=== PATIENT | female | born 1955 | race Caucasian/White ===

== ENCOUNTER 2019-11-22 14:13 | Outpatient (CLI) | payer BC, SELFPAY ==
--- NOTE | ~2019-11-22 | MM_ITS ---
EXAMINATION: MM screening [facility] w [place] HISTORY: Screening mammogram TECHNIQUE: Craniocaudal and mediolateral oblique 3-D tomosynthesis images were obtained and synthetic 2-D images were generated. CAD analysis was submitted and interpreted. COMPARISON: No prior mammogram is available for comparison at this institution. BREAST PARENCHYMAL COMPOSITION: There are scattered areas of fibroglandular density. FINDINGS: There is no evidence of suspicious mass, calcification, or architectural distortion to sugg est malignancy in either breast. There has been no suspicious interval change. IMPRESSION: 1. No mammographic evidence of malignancy. 2. Recommend routine screening mammography in one year. BI-RADS Category 1: Negative Reviewed, dictated and finalized at location A.
== END 2019-11-22 14:14 | disposition home or self-care (01) ==
PROVIDERS: PCP Family Medicine; Visit Provider Family Medicine
DX: Z12.31 Encounter for screening mammogram for malignant neoplasm of breast (principal)
CPT/HCPCS: 77063; 77067

== ENCOUNTER 2019-12-08 11:35 | Outpatient (CLI) | payer BC, SELFPAY ==
--- NOTE | ~2019-12-08 | US_ITS ---
US thyroid INDICATION: Direct nodules TECHNIQUE: Real-time sonographic images of the thyroid gland were obtained. COMPARISON: No prior studies for comparison. FINDINGS: The right thyroid lobe measures 4.7 x 1.7 x 2.2 cm. The left thyroid lobe measures 4.5 x 1 .6 x 1.9 cm. There are multiple bilateral thyroid nodules. There is a 1.8 cm cyst in the right lobe w hich is benign. There is a solid hypoechoic mass which is wider than tall, ill-defined margins and ma crocalcifications measuring 1.7 x 1.3 x 1.2 cm, TR 4 classification. In the left lobe there are multi ple small cystic and hypoechoic nodules, largest being a cyst measuring 7 mm. No suspicious masses wh ich may criteria for follow-up surveillance or biopsy. IMPRESSION: 1. 1.7 cm solid mass of the right thyroid lobe which meets sonographic criteria for biopsy. Ultrasou nd-guided fine-needle aspiration recommended. Reviewed, dictated and finalized at location A. IMPRESSION: 1. 1.7 cm solid mass of the right thyroid lobe which meets sonographic criteri a for biopsy. Ultrasound-guided fine-needle aspiration recommended.
== END 2019-12-08 11:36 | disposition home or self-care (01) ==
PROVIDERS: PCP Family Medicine; Visit Provider Internal Medicine Endocrinology, Diabetes & Metabolism
DX: E04.1 Nontoxic single thyroid nodule (principal)
CPT/HCPCS: 76536

== ENCOUNTER 2020-12-02 13:50 | Outpatient (CLI) | payer BC, SELFPAY ==
--- NOTE | ~2020-12-02 | US_ITS ---
EXAMINATION: US thyroid DATE: 12/02/2020 14:29 INDICATION: Nontoxic single thyroid nodule. TECHNIQUE: Multiple ultrasound images of the thyroid were obtained. COMPARISON: Ultrasound 12/08/2019 FINDINGS: The right thyroid lobe measures 5.2 x 2.2 x 1.7 cm. The left thyroid lobe measures 5.6 x 1.7 x 1.4 c m. In the right thyroid lobe, there is an 11 mm mixed solid and cystic, hypoechoic, hnbxu-[id number]-[id number] nodule with smooth margin without echogenic foci (TI-RADS TR3). In the right thyroid lobe, there is a 19 mm mixed solid and cystic, hypoechoic, cegob-mnhj-uvgy nodule with smooth margin without echogeni c foci (TR3). The left thyroid lobe, there is a 9 mm solid, hypoechoic, pjkdj-lxub-bwto nodule with i ll-defined margin without echogenic foci (TR4). IMPRESSION: 1. Stable thyroid nodules. Thyroid ultrasound is recommended in 2 years. Reviewed, dictated and finalized at location B.
== END 2020-12-02 13:51 | disposition home or self-care (01) ==
PROVIDERS: PCP Family Medicine; Visit Provider Internal Medicine Endocrinology, Diabetes & Metabolism
DX: E04.2 Nontoxic multinodular goiter (principal)
CPT/HCPCS: 76536

== ENCOUNTER 2020-12-07 13:57 | Emergency (ER) | payer BC, SELFPAY ==
[2020-12-07 14:05] VITALS: BP 137/82; PULSE 102; RESP 16; TEMP 36.3; O2SAT 100
--- NOTE | 2020-12-07 14:11 | ED.FEMALEGU ---
HPI - Female Genitourinary General Chief complaint: Urogenital-Female Stated complaint: Bladder infection Time Seen by Provider: 12/07/20 14:14 Source: patient, RN notes reviewed and old records reviewed Mode of arrival: ambulatory Limitations: no limitations History of Present Illness HPI Narrative: 65 year old female who presents to [facility] care with complaints of urinary tract infection symptoms for the past days. Patient states that she has had suprapubic tenderness, urinary frequency with urine noted to be cloudy for the past 2 days. She reports that she does have a history of past UTI's with last one successfully treated with Cipro after initially receiving Macrobid. Patient states no vaginal discharge or itching, is diabetic. Patient states that she has had no fevers chills or sweats, denies any nausea vomiting or any diarrhea. She has been taking some Pyridium for her urinary discomfort. MD elicited complaint: dysuria and UTI Pertinent past history: recurrent UTIs and hysterectomy Onset (ago): day(s) (2) Location of symptoms: suprapubic Severity scale (1-10): 2 Quality of pain: burning and aching Consistency: constant Vaginal discharge: none Vaginal bleeding: none Urinary symptoms: Dysuria, Urgency and Frequency Exacerbating factors: none Relieving factors: none Treatment prior to arrival: OTC urinary analgesics Sexual activity: Yes Patient : No Related Data Home Medications Medication Instructions Recorded Confirmed duloxetine mg PO 12/07/20 exenatide microspheres [Bydureon mg SUBCUT 12/07/20 BCise] fenofibrate mg 12/07/20 glimepiride mg 12/07/20 hydrochlorothiazide 12/07/20 insulin glargine U-300 conc unit SUBCUT 12/07/20 [Toujeo SoloStar U-300 Insulin] lisinopril 12/07/20 metformin mg 12/07/20 omeprazole 12/07/20 ondansetron HCl 12/07/20 trazodone 12/07/20 Allergies Allergy/AdvReac Type Severity Reaction Status Date / Time codeine Allergy Unknown Unknown Verified 05/14/18 12:54 promethazine Allergy Unknown Unknown Verified 05/14/18 12:54 rifampin Allergy Unknown Verified 11/02/09 04:08 dulaglutide AdvReac Severe Other Verified 05/14/18 12:54 1.CODIENE Allergy Unknown Uncoded 01/02/03 14:40 2.PHENERGAN.3.RIFAMPIN CODEINE (Generic Allergy) Allergy Unknown Y Uncoded 03/26/05 06:27 RIFAMPIN (Generic Allergy) Allergy Unknown Y Uncoded 03/26/05 06:27 Review of Systems Review of Systems: Narrative: CONSTITUTIONAL: Denies fever, chills, or sweats. EYES: Denies visual changes, redness, or discharge. ENT: Denies rhinorrhea, congestion, sore throat, or otalgia. CARDIOVASCULAR: Denies chest pain, palpitations, or edema. RESPIRATORY: Denies cough or dyspnea. GASTROINTESTINAL: Positive for lower abdominal pain,no nausea, vomiting, or diarrhea. GENITOURINARY: positive for dysuria, no visual hematuria. SKIN: Denies rash or itching. MUSCULOSKELETAL: Denies back pain, joint pain, or myalgia. NEUROLOGIC: Denies headache, numbness, or weakness. PSYCHIATRIC: Denies anxiety or depression. All systems reviewed & are unremarkable except as noted in HPI and below PMFSH Past Medical History Medical History (Updated 12/07/20 @ 16:29 by Carlyn Sanchez NP) Diabetes mellitus GERD (gastroesophageal reflux disease) Hypertension Insomnia Kidney stones MVP (mitral valve prolapse) SVT (supraventricular tachycardia) UTI (urinary tract infection) Surgical History Surgical History (Updated 12/07/20 @ 16:22 by Carlyn Sanchez NP) H/O bladder repair surgery TVT History of hysterectomy Hx of cholecystectomy Family History Family History (Updated 12/07/20 @ 16:25 by Carlyn Sanchez NP) Other Cancer Cardiomyopathy Diabetes mellitus Hypertension Social History Social History (Updated 12/07/20 @ 16:11 by Carlyn Sanchez NP) Smoking status: Never smoker Alcohol intake: unknown Substance use: never Living arrangements: with family Gender identity (if verbalize
== END 2020-12-07 14:38 | disposition home or self-care (01) ==
PROVIDERS: Emergency Provider Registered Nurse; PCP Family Medicine
DX: N39.0 Urinary tract infection, site not specified (principal); E11.9 Type 2 diabetes mellitus without complications; K21.9 Gastro-esophageal reflux disease without esophagitis; I10 Essential (primary) hypertension; I34.1 Nonrheumatic mitral (valve) prolapse
CPT/HCPCS: 81003; 87086; 99213; G0463

== ENCOUNTER 2021-04-23 07:46 | Outpatient (CLI) | payer BC, SELFPAY ==
--- NOTE | ~2021-04-23 | US_ITS ---
EXAMINATION: US right upper quadrant EXAM DATE: 04/23/2021 08:16 INDICATION: Right upper quadrant pain. TECHNIQUE: Multiple grayscale and Doppler images of the abdomen right upper quadrant were obtained (b y a technologist who performed the scan) and subsequently reviewed. Comparison is made to prior exami nation from 08/07/2011. FINDINGS: The pancreatic head and body are normal in appearance. The pancreatic tail is not visualized. There is echogenic liver parenchyma, hepatic steatosis. There are no focal liver lesions identified. Th ere is no evidence of intrahepatic biliary duct dilation. Portal venous flow was seen in the hepatop edal, normal direction and has normal Doppler waveform. No right-sided hydronephrosis. Common bile duct measures 4 mm, which is normal. The gallbladder fossa is unremarkable. IMPRESSION: 1. Hepatic steatosis. Reviewed, dictated and finalized at location A. IMPRESSION: 1. Hepatic steatosis.
== END 2021-04-23 07:47 | disposition home or self-care (01) ==
PROVIDERS: PCP Family Medicine; Visit Provider Internal Medicine Endocrinology, Diabetes & Metabolism
DX: R10.11 Right upper quadrant pain (principal); K76.0 Fatty (change of) liver, not elsewhere classified
CPT/HCPCS: 76705

== ENCOUNTER 2021-07-10 23:51 | Emergency (ER) | payer BC, SELFPAY ==
[2021-07-10 23:58] VITALS: BP 171/91; PULSE 112; RESP 20; TEMP 36.8; O2SAT 98
[2021-07-11 00:11] LABS: Glucose Point of Care 127 mg/dl (65-105)
[2021-07-11 02:35] VITALS: PULSE 115; RESP 20; O2SAT 100
--- NOTE | 2021-07-11 02:39 | PC.NURSE ---
BS 232
[2021-07-11 02:41] LABS: Glucose Point of Care 232 mg/dl (65-105)
[2021-07-11] MEDS: ONDANSETRON INJ 4 MG/2 ML VIAL IV PUSH (03:29)
[2021-07-11] MEDS: SODIUM CHLORIDE 0.9% IV 1,000 ML 999 ML IV CONT (03:29)
[2021-07-11 03:53] LABS: Basophils Percent Auto 0.4 % (0.2-1.2); Eosinophils Percent Auto 0.4 % (0-4.4); Hematocrit 38.1 % (37.0-47.0); Hemoglobin 12.9 g/dL (12.0-15.0); Immature Granulocyte Absolute 0.04 K/mm3 (0.00-0.031); Immature Granulocyte Percent A 0.4 % (0-0.5); Lymphocytes Absolute Auto 0.46 K/mm3 (0.9-3.2); Lymphocytes Percent Auto 4.2 % (18.3-44.2); Mean Corpuscular HGB Conc 33.9 g/dl (32-36); Mean Corpuscular Hemoglobin 29.6 pg (26-34); Mean Corpuscular Volume 87.4 fl (80-100); Mean Platelet Volume 10.9 fl (7.4-10.4); Monocytes Absolute Auto 0.6 K/mm3 (0.1-0.6); Monocytes Percent Auto 5.2 % (2.6-8.5); Neutrophils Absolute Auto 9.9 K/mm3 (1.3-6.7); Neutrophils Percent Auto 89.4 % (45.5-73.1); Platelet Count Result 159 k/mm3 (150-375); Red Blood Count 4.36 M/mm3 (4.2-5.4); Red Cell Distribution Width 13.3 % (11.5-14.5)
[2021-07-11 04:14] LABS: Alanine Aminotransferase 30 U/L (4-35); Alkaline Phosphatase 72 U/L (38-126); Anion Gap 12 mmol/L (8-16); Aspartate Amino Transferase 40 U/L (14-36); Bilirubin,Total 0.7 mg/dL (0.2-1.3); Blood Urea Nitrogen 19 mg/dL (7-17); Calcium 9.2 mg/dL (8.4-10.2); Carbon Dioxide 21 mmol/L (22-30); Chloride 104 mmol/L (98-107); Estimated CRCL calculation 48 ml/min; Estimated Glomerular Filt Rate 56; Glucose 247 mg/dL (65-110); Lipase 304 U/L (23-300); Sodium 137 mmol/L (137-145)
[2021-07-11 04:25] LABS: Add Urine Microscopic? YES; Appearance Urine Clear (Clear); Bilirubin Urine Negative (Negative); Blood Urine Negative (Negative); Color Urine Yellow (Yellow); Glucose Urine UA Negative (Negative); Ketones Urine Negative (Negative); Leukocyte Esterase Ur Negative LEU/UL (Negative); Mucus Urine Rare /lpf; Nitrate Urine Negative (Negative); Protein Urine 3+ mg/dL (Negative); RBC Urine 0-2 /hpf (0-2); Specific Grav Ur 1.016 (1.001-1.035); Squamous Epithelial Cell Urine Rare /hpf (Few); Urobilinogen Urine Negative mg/dL (<2.0)
[2021-07-11 05:37] VITALS: BP 152/85; PULSE 108; RESP 16; O2SAT 99
--- NOTE | 2021-07-11 06:28 | ED.NAVMDI ---
HPI - Nausea/Vomiting/Diarrhea General Chief complaint: Nausea/Vomiting/Diarrhea Stated complaint: n/v/d 1 month Time Seen by Provider: 07/11/21 02:35 History of Present Illness HPI Narrative: Patient is a 65-year-old female who presents ER with reports of nausea vomiting for the last month. Symptoms worsen with eating. No alleviating factors. No associated epigastric pain. No diarrhea. No fevers or chills or sweats. No known sick contacts. Related Data Home Medications Medication Instructions Recorded Confirmed duloxetine mg PO 12/07/20 exenatide microspheres [Bydureon mg SUBCUT 12/07/20 BCise] fenofibrate mg 12/07/20 glimepiride mg 12/07/20 hydrochlorothiazide 12/07/20 insulin glargine U-300 conc unit SUBCUT 12/07/20 [Toujeo SoloStar U-300 Insulin] lisinopril 12/07/20 metformin mg 12/07/20 omeprazole 12/07/20 ondansetron HCl 12/07/20 trazodone 12/07/20 Allergies Allergy/AdvReac Type Severity Reaction Status Date / Time codeine Allergy Unknown Unknown Verified 05/14/18 12:54 promethazine Allergy Unknown Unknown Verified 05/14/18 12:54 rifampin Allergy Unknown Verified 11/02/09 04:08 dulaglutide AdvReac Severe Other Verified 05/14/18 12:54 1.CODIENE Allergy Unknown Uncoded 01/02/03 14:40 2.PHENERGAN.3.RIFAMPIN CODEINE (Generic Allergy) Allergy Unknown Y Uncoded 03/26/05 06:27 RIFAMPIN (Generic Allergy) Allergy Unknown Y Uncoded 03/26/05 06:27 Review of Systems Review of Systems: All systems reviewed & are unremarkable except as noted in HPI and below Constitutional: Constitutional: Denies chills, Denies fever(s) and Reports weakness ENT: Denies nasal congestion and Denies sore throat Gastrointestinal: Gastrointestinal: Denies abdominal pain, Denies diarrhea, Reports nausea and Reports vomiting Genitourinary: Genitourinary: Denies nocturia and Denies dysuria [facility] Past Medical History Medical History (Updated 07/12/21 @ 00:00 by Background Daemon) Diabetes mellitus GERD (gastroesophageal reflux disease) Hypertension Insomnia Kidney stones MVP (mitral valve prolapse) SVT (supraventricular tachycardia) UTI (urinary tract infection) Surgical History Surgical History (Updated 12/07/20 @ 16:22 by Carlyn Sanchez NP) H/O bladder repair surgery TVT History of hysterectomy Hx of cholecystectomy Family History Family History (Updated 12/07/20 @ 16:25 by Carlyn Sanchez NP) Other Cancer Cardiomyopathy Diabetes mellitus Hypertension Social History Social History (Updated 12/07/20 @ 16:11 by Carlyn Sanchez NP) Smoking status: Never smoker Alcohol intake: unknown Substance use: never Gender identity (if verbalized by the patient): Female Exam Narrative: GENERAL: Well-appearing, well-nourished, and in no acute distress. HEAD: Normocephalic, atraumatic. CHEST: Clear to auscultation. No respiratory distress. HEART: Regular rate and rhythm. Normal peripheral pulses. ABDOMEN: Soft, nontender, nondistended. EXTREMITIES: Normal range of motion. No edema. SKIN: Warm, dry, no rash. NEURO: Alert and oriented x3. PSYCH: Normal mood and affect. Course Course Emergency Course: Hydrated, given antiemetics. Unremarkable labs. Discharge home. Vital Signs Vital signs: Vital Signs Temperature 98.2 F 07/10/21 23:58 Pulse Rate 112 H 07/10/21 23:58 Respiratory Rate 20 07/10/21 23:58 Blood Pressure 171/91 H 07/10/21 23:58 Pulse Oximetry 98 07/10/21 23:58 Temperature 98.2 F 07/10/21 23:58 Pulse Rate 100 07/11/21 06:39 Respiratory Rate 14 07/11/21 06:39 Blood Pressure 152/85 H 07/11/21 06:39 Pulse Oximetry 97 07/11/21 06:39 MDM - Nausea/Vomiting/Diarrhea Lab Data Result diagrams: 07/11/21 03:28 07/11/21 03:28 Labs: Lab Results 07/11/21 07/11/21 07/11/21 Range/Units 00:04 02:37 03:21 WBC (4.5-10.0) K/mm3 RBC (4.2-5.4) M/mm3 Hgb (12.0-15.0) g/dL Hct (
[2021-07-11 06:39] VITALS: BP 152/85; PULSE 100; RESP 14; O2SAT 97
== END 2021-07-11 06:40 | disposition home or self-care (01) ==
PROVIDERS: Emergency Provider Emergency Medicine; PCP Internal Medicine Endocrinology, Diabetes & Metabolism
DX: R11.2 Nausea with vomiting, unspecified (principal); E11.9 Type 2 diabetes mellitus without complications; I10 Essential (primary) hypertension; K21.9 Gastro-esophageal reflux disease without esophagitis; I34.1 Nonrheumatic mitral (valve) prolapse; Z87.442 Personal history of urinary calculi; Z87.440 Personal history of urinary (tract) infections; Z79.4 Long term (current) use of insulin; Z79.84 Long term (current) use of oral hypoglycemic drugs
CPT/HCPCS: 36415; 51701; 80053; 81001; 82948; 83690; 85025; 96361; 96374; 99284; J2405; J7030

== ENCOUNTER 2021-12-08 13:31 | Emergency (ER) | payer MEDICARE, BC, SELFPAY ==
--- NOTE | 2021-12-08 13:42 | ED.FEMALEGU ---
HPI - Female Genitourinary General Chief complaint: Urogenital-Female Stated complaint: UTI SYMPTOMS Time Seen by Provider: 12/08/21 13:42 Source: patient and RN notes reviewed History of Present Illness HPI Narrative: Patient is 66-year-old female who presents the urgent care with complaints of a possible UTI. Patient states that for the last 3 days she has had increased dysuria, suprapubic pressure and frequency. Patient does have a history of UTIs with the last one being in June. Patient denies any blood in the urine, nausea, vomiting or abdominal pain. Denies a fever. Patient states that she has been taking Azo with the last dose being at 10 AM this morning. No other acute complaints. No acute distress noted. Patient aware of the plan of care. Some parts of this dictation were generated by voice recognition software and may contain typographical and/or grammatical inaccuracies. Related Data Home Medications Medication Instructions Recorded Confirmed trazodone 50 mg tablet 50 mg PO HS 12/07/20 12/08/21 amlodipine 5 mg tablet 5 mg PO DAILY 12/08/21 12/08/21 fenofibrate 160 mg tablet 160 mg PO DAILY 12/08/21 12/08/21 glimepiride 1 mg tablet 2 mg PO BID 12/08/21 12/08/21 hydrochlorothiazide 12.5 mg capsule 1 cap PO DAILY 12/08/21 12/08/21 lisinopril 20 mg tablet 20 mg PO DAILY 12/08/21 12/08/21 metformin 1,000 mg tablet 1,000 mg PO BID 12/08/21 12/08/21 ondansetron HCl 4 mg tablet 4 mg PO PRN PRN Nausea 12/08/21 12/08/21 Allergies Allergy/AdvReac Type Severity Reaction Status Date / Time codeine Allergy Unknown Unknown Verified 12/08/21 13:44 promethazine Allergy Unknown Unknown Verified 12/08/21 13:44 rifampin Allergy Unknown Unknown Verified 12/08/21 13:44 dulaglutide AdvReac Severe Other Verified 12/08/21 13:44 1.CODIENE Allergy Unknown Unknown Uncoded 12/08/21 13:44 2.PHENERGAN.3.RIFAMPIN CODEINE (Generic Allergy) Allergy Unknown Y Uncoded 12/08/21 13:44 RIFAMPIN (Generic Allergy) Allergy Unknown Y Uncoded 12/08/21 13:44 Review of Systems Review of Systems: CONSTITUTIONAL: Denies fever, chills, or sweats. EYES: Denies visual changes, redness, or discharge. ENT: Denies rhinorrhea, congestion, sore throat, or otalgia. CARDIOVASCULAR: Denies chest pain, palpitations, or edema. RESPIRATORY: Denies cough or dyspnea. GASTROINTESTINAL: Denies abdominal pain, nausea, vomiting, or diarrhea. GENITOURINARY: Reports of dysuria, pressure, urinary frequency SKIN: Denies rash or itching. MUSCULOSKELETAL: Denies back pain, joint pain, or myalgia. NEUROLOGIC: Denies headache, numbness, or weakness. All other systems reviewed are negative, except as documented in HPI. [facility] Past Medical History Medical History (Updated 12/08/21 @ 13:53 by EMETERIO Hernandez) Diabetes mellitus GERD (gastroesophageal reflux disease) Hypertension Insomnia Kidney stones MVP (mitral valve prolapse) SVT (supraventricular tachycardia) UTI (urinary tract infection) Surgical History Surgical History (Updated 12/07/20 @ 16:22 by Carlyn Sanchez NP) H/O bladder repair surgery TVT History of hysterectomy Hx of cholecystectomy Family History Family History (Updated 12/07/20 @ 16:25 by Carlyn Sanchez NP) Other Cancer Cardiomyopathy Diabetes mellitus Hypertension Social History Social History (Updated 12/07/20 @ 16:11 by Carlyn Sanchez NP) Smoking status: Never smoker Alcohol intake: unknown Substance use: never Gender identity (if verbalized by the patient): Female Comments At the time of my signature, I reviewed and agree with the nursing past medical, surgical, social, and family history. There is no relevant family history pertinent to the patient complaint. Exam Narrative: GENERAL: This is a well-nourished, well-developed patient, in no apparent distress. HEAD: normocephalic, atraumatic. EYES: PERRL. Sclera clear/white. Vision is grossly intact. EARS: External ears normal NOSE: Exter
[2021-12-08 13:48] VITALS: BP 153/78; PULSE 81; RESP 16; TEMP 35.9; O2SAT 100
== END 2021-12-08 14:17 | disposition home or self-care (01) ==
PROVIDERS: Emergency Provider Nurse Practitioner Family; PCP Internal Medicine Endocrinology, Diabetes & Metabolism
DX: N39.0 Urinary tract infection, site not specified (principal); E11.9 Type 2 diabetes mellitus without complications; K21.9 Gastro-esophageal reflux disease without esophagitis; I10 Essential (primary) hypertension; I34.1 Nonrheumatic mitral (valve) prolapse
CPT/HCPCS: 81003; 87077; 87086; 87186; 99213; G0463